=== PATIENT | male | born 1985 | race Two or more races ===

== ENCOUNTER 2021-07-04 09:35 | Emergency (ER) | payer OTHER, SELFPAY ==
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
[2021-07-04 10:15] VITALS: BP 135/83; PULSE 95; RESP 19; TEMP 36.3; O2SAT 95; BMI 20.8
[2021-07-04] MEDS: Cyclobenzaprine HCl 10 MG TABLET PO (12:18)
[2021-07-04] MEDS: Acetaminophen 325 MG TABLET 975 MG PO (12:18)
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
[2021-07-04 13:12] VITALS: BP 106/77; PULSE 58; RESP 16; O2SAT 99
[2021-07-04 13:46] VITALS: RESP 18
== END 2021-07-04 15:48 | disposition home or self-care (01) ==
PROVIDERS: Emergency Provider Emergency Medicine
DX: S13.4XXA Sprain of ligaments of cervical spine, initial encounter (principal); S29.011A Strain of muscle and tendon of front wall of thorax, initial encounter; M54.2 Cervicalgia; R42 Dizziness and giddiness; M25.511 Pain in right shoulder; G44.309 Post-traumatic headache, unspecified, not intractable; V43.52XA Car driver injured in collision with other type car in traffic accident, initial encounter; Y93.9 Activity, unspecified; Y92.410 Unspecified street and highway as the place of occurrence of the external cause; Y99.9 Unspecified external cause status; Z79.899 Other long term (current) drug therapy
CPT/HCPCS: 70450; 71101; 72125; 73030; 99284

== ENCOUNTER 2021-08-27 01:56 | Emergency (ER) | payer OTHER, SELFPAY ==
--- NOTE | ~2021-08-27 | XR_ITS ---
EXAMINATION: XR CHEST CLINICAL INFORMATION: Shortness of breath COMPARISON: 07/04/2021 TECHNIQUE: Frontal view of the chest was obtained. FINDINGS: Lung volumes are symmetric. No focal consolidation is seen. No evidence of pneumothorax, pleural effusion, or pulmonary edema. The cardiomediastinal contour is unremarkable. No acute osseous findings are seen. XR/XR chest 1V IMPRESSION: No acute cardiopulmonary findings.
[2021-08-27 02:04] VITALS: PULSE 97; RESP 16; TEMP 36.6; O2SAT 100; BMI 20.7
--- NOTE | 2021-08-27 02:09 | ED_ITS ---
HPI - SOB/Dyspnea General Chief Complaint: Asthma Stated Complaint: Trouble breathing, allergic reaction?/asthma Time Seen by Provider: 08/27/21 02:00 Source: patient Mode of arrival: ambulatory History of Present Illness HPI Narrative: 35-year-old male with history of asthma presents with worsening shortness of breath over the past 2-3 days and states that his rescue inhaler is not helping. It has been a significant amount of time since his prior asthma exacerbation and he denies any recent COVID-19 vaccinations. In addition, patient states he has had a sore throat and some nasal congestion but otherwise denies body aches or headache. Related Data Previous Rx's Medication Instructions Recorded acetaminophen 500 mg tablet 1,000 mg PO QID PRN #14 tab 07/04/21 (Tylenol Extra Strength) cyclobenzaprine 10 mg tablet 10 mg PO Q8H #14 tab 07/04/21 prednisone 20 mg tablet 40 mg PO DAILY 4 Days #8 tab 08/27/21 Allergies Allergy/AdvReac Type Severity Reaction Status Date / Time No Known Allergies Allergy Unverified 06/17/20 15:59 Review of Systems Review of Systems: Pertinent positives and negatives as stated in HPI 10 point review of systems otherwise negative. PMFSH Past Medical History Source: nursing notes reviewed Medical History Asthma Social History Social History Use of substances other than those prescribed or required for medical reasons: Yes Substance Use Type: Marijuana Advance Directives: No Advance Directives Information Provided: Yes Physical Exam Vital Signs: Vital Signs: Last Vital Signs Temp 97.9 F 08/27/21 02:04 Pulse 97 08/27/21 02:04 Resp 16 08/27/21 02:54 Pulse Ox 100 08/27/21 02:04 Body Mass Index 20.7 VITAL SIGNS: Reviewed. GENERAL: Well developed, well nourished, in no acute distress. HEAD: Normocephalic/atraumatic EYES: PERRLA, EOMI OROPHARYNX: no oral lesions noted, posterior pharynx clear and non-erythematous without noted tonsillar enlargement/erythema/exudates NECK: Supple, no adenopathy LUNGS: Mild decrease in breath sounds with minimal expiratory wheeze, no noted retractions or significant tachypnea. SpO2<95> CARDIOVASCULAR: Regular rate and rhythm without noted murmurs ABDOMEN: Soft, non-tender, non-distended with bowel sounds. SKIN: Inspection of the skin reveals no rashes NEUROLOGIC: Alert and oriented x 4. Course Course Course Narrative: 35-year-old male with history and clinical presentation suggestive of possible mild asthma exacerbation versus COVID-19 infection. Patient is neither significantly tachypneic but is noted to have a decreased oxygenation to 95% and remote history of asthma exacerbation. MDM - SOB/Dyspnea Lab Data Labs: Lab Results 08/27/21 Range/Units 02:15 Influenza Type A (PCR) NEGATIVE (Negative) Influenza Type B (PCR) NEGATIVE (Negative) RSV RNA Qual (PCR) NEGATIVE (Negative) SARS-CoV-2 RNA (RT-PCR) NEGATIVE (Negative) Discharge Plan Discharge Clinical Impression: Asthma with acute exacerbation Patient Disposition: Home, Self-Care Instructions: Asthma (ED) Additional Instructions: 1. Please complete the short course of steroids that you have been prescribed. 2. Continue to use your albuterol inhaler every 4-6 hours, 2 puffs for the next 1-2 days. 3. Follow-up with your primary care provider in the next 2-3 days for re- evaluation. Return to the ER for acute worsening of symptoms. Prescriptions: New prednisone 20 mg tablet 40 mg PO DAILY 4 Days Qty: 8 RF: 0 No Action cyclobenzaprine 10 mg tablet 10 mg PO Q8H Qty: 14 RF: 0 acetaminophen [Tylenol Extra Strength] 500 mg tablet 1,000 mg PO QID PRN (Reason: fever or pain) Qty: 14 RF: 0 Referrals: Erlinda Copeland MD [Primary Care Provider] - 2 days
[2021-08-27] MEDS: Albuterol Sulfate 90 MCG 8 GM INHALER 4 PUFF INHALE (02:21)
[2021-08-27] MEDS: methylPREDNISolone Sod Succ 125 MG/2 ML VIAL IVPUSH (02:21)
--- NOTE | 2021-08-27 02:32 | PC.NURSE ---
pt a&o, reports some sob, no chest pain. Iv placed and pt medicated per Nov. pt is able to speack in full sentence. no respiratory distress at this time.
[2021-08-27 02:54] VITALS: RESP 16
[2021-08-27 02:58] LABS: Influenza A PCR NEGATIVE (Negative); Influenza B PCR NEGATIVE (Negative); Resp Syncy Virus RNA Qual PCR NEGATIVE (Negative); SARS COV2 PCR INHOUSE NEGATIVE (Negative)
--- NOTE | 2021-08-27 03:43 | PC.NURSE ---
pt reports some improvement at this time. Respiratory aware and plan to do a breathing treatment. pt on bedside monitor.
[2021-08-27] MEDS: Albuterol Sulfate (0.083%) 2.5 MG/3 ML VIAL.NEB 5 MG INHALE (04:07)
[2021-08-27 04:08] VITALS: PULSE 82; O2SAT 98
--- NOTE | 2021-08-27 04:12 | PC.NURSE ---
pt having a respiratory treatments. pt is tolerating it well.
[2021-08-27 04:30] VITALS: BP 127/73; PULSE 86; RESP 14; TEMP 36.6; O2SAT 96
== END 2021-08-27 04:37 | disposition home or self-care (01) ==
PROVIDERS: Emergency Provider Student in an Organized Health Care Education/Training Program; PCP Internal Medicine
DX: J45.901 Unspecified asthma with (acute) exacerbation (principal); Z20.822 Contact with and (suspected) exposure to COVID-19; J02.9 Acute pharyngitis, unspecified; Z79.899 Other long term (current) drug therapy; F12.90 Cannabis use, unspecified, uncomplicated
CPT/HCPCS: 0241U; 36415; 71045; 94640; 96374; 99284; J2930

== ENCOUNTER 2021-09-16 14:04 | Outpatient (REF) | payer OTHER, SELFPAY ==
[2021-09-16 15:22] LABS: COVID-19 Test Negative (Negative)
== END 2021-09-16 14:05 | disposition home or self-care (01) ==
LOC: HO.LAB 14:04
PROVIDERS: Visit Provider Internal Medicine
DX: Z20.822 Contact with and (suspected) exposure to COVID-19 (principal)
CPT/HCPCS: 36415; 87635; C9803

== ENCOUNTER 2022-07-22 11:39 | Emergency (ER) | payer SELFPAY ==
--- NOTE | ~2022-07-22 | XR_ITS ---
EXAMINATION: XR CHEST CLINICAL INFORMATION: Shortness of breath. COMPARISON: 08/27/2021 chest radiograph. TECHNIQUE: Frontal view of the chest was obtained. FINDINGS: No significant abnormality is noted involving the heart, lungs, mediastinum, bony thorax or soft tissues. XR/XR chest 1V IMPRESSION: No acute cardiopulmonary process.
--- NOTE | 2022-07-22 11:42 | ECG_ITS ---
Test Reason : SOB Blood Pressure : / mmHG Vent. Rate : 131 BPM Atrial Rate : 131 BPM P-R Int : 126 ms QRS Dur : 082 ms QT Int : 298 ms P-R-T Axes : 067 088 021 degrees QTc Int : 440 ms Sinus tachycardia Nonspecific T wave abnormality Abnormal ECG No previous ECGs available Referred By: Deedee Guajardo Electronically Signed By:NOLAN ARTHUR MD
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
[2022-07-22] MEDS: Albuterol Sulfate 7.5 MG, Albuterol/Iprat 2.5/0.5MG 3 ML 3 ML INHALE (11:52)
[2022-07-22 11:53] VITALS: BP 112/83; PULSE 133; RESP 18; TEMP 36.8; O2SAT 79; BMI 18.8
[2022-07-22] MEDS: methylPREDNISolone Sod Succ 125 MG/2 ML VIAL IVPUSH (11:57)
[2022-07-22] MEDS: Magnesium Sulfate/H2O 2 GM/50 ML PIGGYBACK IV (11:57)
--- NOTE | 2022-07-22 11:58 | ED_ITS ---
HPI - Asthma General Chief Complaint: Dyspnea Stated Complaint: asthma, diff breathing Time Seen by Provider: 07/22/22 11:43 Source: patient Mode of arrival: ambulatory Limitations: no limitations History of Present Illness HPI Narrative: 36 yo male hx of asthma - no recent admissions no prior intubations, no recent steroids, does smoke THC has felt his asthma going for a few days today 10 minutes prior to arrival became acutely worse and his INH stopped working. He is unsure what triggered this attack no recent URI complaint: asthma attack , shortness of breath and wheezing Onset (ago): day(s) (few) Severity: severe Context: none known Associated symptoms: dry cough Asthma History: childhood onset Treatments Prior to Arrival: inhaled bronchodilator Related Data Previous Rx's Medication Instructions Recorded acetaminophen 500 mg tablet 1,000 mg PO QID PRN fever or pain 07/04/21 (Tylenol Extra Strength) #14 tabs cyclobenzaprine 10 mg tablet 10 mg PO Q8H Muscle spasm #14 tabs 07/04/21 prednisone 20 mg tablet 40 mg PO DAILY 4 days #8 tabs 08/27/21 albuterol sulfate 90 mcg/actuation 2 puff inhalation QID PRN 07/22/22 aerosol inhaler shortness of breath or wheezing #6.7 grams montelukast 10 mg tablet 10 mg PO DAILY #30 tabs 07/22/22 (Singulair) prednisone 20 mg tablet 40 mg PO DAILY 5 days #10 tabs 07/22/22 Allergies Allergy/AdvReac Type Severity Reaction Status Date / Time No Known Allergies Allergy Unverified 06/17/20 15:59 Review of Systems Review of Systems: Constitutional : No Fever, No Chills ENT/Mouth : No Hoarseness, No sore throat, No Rhinorrhea Eyes: No Redness, No Discharge, No Vision Changes Cardiovascular : No Chest Pain, positive SOB, positive Dyspnea on Exertion, No Edema Respiratory : positive Cough, No Sputum, positive Wheezing, Gastrointestinal : No Nausea, No Vomiting, No Diarrhea, No abdominal Pain Genitourinary : No Dysuria, No Hematuria Musculoskeletal : No joint pain, No Myalgias Skin : No rash Neuro : No Weakness, No Numbness, No Headache Psych : No anxiety, depression Heme/Lymph: No Bruising, No Bleeding Endocrine : No Polyuria, No Polydipsia All other systems reviewed and are negative PMFSH Past Medical History Medical History Asthma Social History Social History Substance Use Type: Marijuana Advance Directives: No Advance Directives Information Provided: Yes Physical Exam Vital Signs: Vital Signs: Last Vital Signs Temp 98.3 F 07/22/22 11:53 Pulse 116 H 07/22/22 13:43 Resp 18 07/22/22 11:53 BP 121/71 07/22/22 13:43 Pulse Ox 100 07/22/22 13:43 O2 Del Method 07/22/22 13:43 BMI result Body Mass Index 18.8 Appearance: Alert. Oriented X3. Moderate acute distress. Eyes: Pupils equal, round and reactive to light. ENT: Pharynx normal. Neck: Normal inspection. Neck supple. CVS: Normal heart rate and rhythm. Pulses normal. Respiratory: Moderate respiratory distress - tachypnea, retractions. Breath sounds very diminished - diffuse scant wheezes heard insp/exp Abdomen: Soft and nontender. Skin: Skin warm and dry. Normal skin color. Normal skin turgor. Extremities: No lower extremity edema. No calf ttp Neuro: Oriented X 3. No motor deficit. No sensory deficit. Course Course Course Narrative: drastic improvement with neb, repeat 5mg ordered clear lungs 100% on RA, feels much better wants to go home - HR elevated from nebs MDM - Asthma MDM Narrative Medical decision making narrative: 36 yo male with hx of asthma here with acute exacerbation of asthma in moderate distress - hour long neb ordered, IV steroids, IV magnesium - denies recent infection. Dispo per results and clinical improvement. Lab Data Result diagrams: 07/22/22 11:56 07/22/22 11:56 Labs: Lab Results 07/22/22 07/22/22 07/22/22 Range/Units 11:56 11:56 11:56 WBC 10.5 (4.8-10.8) X10*3/uL RBC 5.25 (4.60-5.80) X10*6/uL Hgb 14.6 (14.0-18.0) g/dl Hct 44.3 (42.0-52.0) % MCV 84.4 (80.0-98.0) fL MCH 27.8 (27.0-33.0) pg MCHC 33.0 (31.0-36.0) g/dl RDW 12.6 (11.0-16.0) % Plt Count 397 (160-400) X10*3/uL MPV 9.0 L (9.4-12.4) fL Immature Gran % (Auto) 0.1 (0.0-0.4) % Neut % (Auto) 43.3 L (45-73) % Lymph % (Auto) 39.9 (20-40) % [place] % (Auto) 5.7 (2-11) % Eos % (Auto) 9.9 H (0-4) % Baso % (Auto) 1.1 (0-2) % Lymph # (Auto) 4.2 (1.2-4.9) X10*3/uL [place] # (Auto) 0.6 (0.1-1.2) X10*3/uL Eos # (Auto) 1.0 H (0.0-0.4) X10*3/uL Baso # (Auto) 0.1 (0.0-0.2) X10*3/uL Abs Immat Gran (auto) 0.01 (0.00-0.03) X10*3/uL Absolute Neuts (auto) 4.5 (2.0-8.3) x10*3/uL Absolute Nucleated RBC 0.000 (0.0-0.012) X10*3/uL Nucleated RBC % (auto) 0.0 (0.0-0.2) /100WBC Sodium 143 (135-145) mmol/L Potassium 3.5 (3.3-5.1) mmol/L Chloride 105 (96-108) mmol/L Carbon Dioxide 23 (22-29) mmol/L Anion Gap 19 (12-20) BUN 12 (9-16) mg/dL Creatinine 1.03 (0.5-1.4) mg/dL Estim Creat Clear Calc 77.8 Estimated GFR > 60 Random Glucose 124 H (60-115) mg/dL Calcium 9.4 (8.4-10.2) mg/dL Magnesium 1.8 (1.6-2.6) mg/dL Total Bilirubin 1.1 H (0.0-1.0) mg/dL Direct Bilirubin 0.4 (0.0-0.5) mg/dL AST 20 (5-37) U/L ALT 10 (0-40) U/L Alkaline Phosphatase 91 (39-117) U/L Total Protein 7.2 (6.5-8.0) g/dL Albumin 4.3 (3.5-5.0) g/dL COVID-19 ([place]) Negative (Negative) COVID-19 Clin Com See Note ECG Data Attestation: I personally reviewed and interpreted this ECG as follows: ECG interpretation date: 07/22/22 ECG interpretation time: 13:10 Interpretation: Rate: 131 Rhythm: sinus tachycardia [place]: normal Normal P waves. Normal [place]. Normal QRS complex. ST T wave : nonspecific no BUCK qTC: normal prior studies: no acute ischemia The study has been interpreted contemporaneously by me. . Critical Care Time Critical Care Time Critical Care Time: Yes Total Critical Care Time: 40 Attestation: hour long neb, repeat neb, emergent bedside attendance for hypoxia I attest to this time spent taking care of the patient Discharge Plan Discharge Clinical Impression: Asthma with exacerbation Qualifiers: Asthma severity: mild Asthma persistence: persistent Qualified Code(s): J45.31 - Mild persistent asthma with (acute) exacerbation Patient Disposition: Home, Self-Care Instructions: Asthma (ED) Additional Instructions: return to ED for any worsening symptoms or concerns please avoid smoke exposure follow up with primary care doctor gorge is for allergies Prescriptions: New prednisone 20 mg tablet 40 mg PO DAILY 5 Days Qty: 10 0RF albuterol sulfate 90 mcg/actuation HFA aerosol inhaler 2 puff inhalation QID PRN (Reason: shortness of breath or wheezing) Qty: 6.7 1RF montelukast [Singulair] 10 mg tablet 10 mg PO DAILY Qty: 30 0RF No Action prednisone 20 mg tablet 40 mg PO DAILY 4 Days Qty: 8 0RF cyclobenzaprine 10 mg tablet 10 mg PO Q8H Qty: 14 0RF acetaminophen [Tylenol Extra Strength] 500 mg tablet 1,000 mg PO QID PRN (Reason: fever or pain) Qty: 14 0RF Stand Alone Forms: Work/School Release
[2022-07-22 12:02] LABS: MANUAL DIFF FLAG NO
[2022-07-22 12:04] LABS: Basophils Absolute Auto 0.1 X10*3/uL (0.0-0.2); Basophils Percent Auto 1.1 % (0-2); Eosinophils Percent Auto 9.9 % (0-4); Hematocrit 44.3 % (42.0-52.0); Hemoglobin 14.6 g/dl (14.0-18.0); Imm Gran Abs Auto 0.01 X10*3/uL (0.00-0.03); Imm Gran Pct Auto 0.1 % (0.0-0.4); Lymphocytes Absolute Auto 4.2 X10*3/uL (1.2-4.9); Lymphocytes Percent Auto 39.9 % (20-40); Mean Corpuscular Hemoglobin 27.8 pg (27.0-33.0); Mean Corpuscular Volume 84.4 fL (80.0-98.0); Monocytes Absolute Auto 0.6 X10*3/uL (0.1-1.2); Monocytes Percent Auto 5.7 % (2-11); Neutrophils Absolute Auto 4.5 x10*3/uL (2.0-8.3); Neutrophils Percent Auto 43.3 % (45-73); Platelet Count 397 X10*3/uL (160-400); Red Blood Count 5.25 X10*6/uL (4.60-5.80); Red Cell Distribution Width 12.6 % (11.0-16.0); White Blood Count 10.5 X10*3/uL (4.8-10.8)
[2022-07-22 12:24] LABS: COVID-19 Test Negative (Negative); IDNOW Serial# 9DB6401D
[2022-07-22 12:29] LABS: Alanine Aminotransferase 10 U/L (0-40); Albumin Level 4.3 g/dL (3.5-5.0); Alkaline Phosphatase 91 U/L (39-117); Anion Gap 19 (12-20); Aspartate Amino Transferase 20 U/L (5-37); Bilirubin Direct 0.4 mg/dL (0.0-0.5); Bilirubin Total 1.1 mg/dL (0.0-1.0); Blood Urea Nitrogen 12 mg/dL (9-16); Calcium 9.4 mg/dL (8.4-10.2); Carbon Dioxide 23 mmol/L (22-29); Chloride 105 mmol/L (96-108); Creatinine Clr Calc Pharmacy 77.8; Estimated Glomerular Filt Rate > 60; Glucose Random 124 mg/dL (60-115); Magnesium 1.8 mg/dL (1.6-2.6); Potassium 3.5 mmol/L (3.3-5.1); Sodium 143 mmol/L (135-145); Total Protein 7.2 g/dL (6.5-8.0)
[2022-07-22] MEDS: Albuterol Sulfate 2.5 MG, Albuterol Sulfate (0.083%) 2.5 MG 5 MG INHALE (12:38)
[2022-07-22 13:43] VITALS: BP 121/71; PULSE 116; O2SAT 100
== END 2022-07-22 14:25 | disposition home or self-care (01) ==
PROVIDERS: Emergency Provider Emergency Medicine
DX: J45.31 Mild persistent asthma with (acute) exacerbation (principal); F12.90 Cannabis use, unspecified, uncomplicated; Z20.822 Contact with and (suspected) exposure to COVID-19
CPT/HCPCS: 71045; 80048; 80076; 83735; 85025; 87635; 93005; 96365; 96375; 99284; J2930; J3475

== ENCOUNTER 2024-02-29 23:47 | Emergency (ER) | payer BC, SELFPAY ==
--- NOTE | ~2024-02-29 | XR_ITS ---
EXAMINATION: XR CHEST CLINICAL INFORMATION: Asthma. COMPARISON: Chest radiograph dated 07/22/2022. TECHNIQUE: Frontal view of the chest was obtained. FINDINGS: Heart size is normal. There is no consolidation. No pleural effusion or pneumothorax. No acute osseous abnormality. XR/XR chest 1V IMPRESSION: No acute cardiopulmonary disease.
[2024-02-29 23:56] VITALS: BP 130/84; PULSE 92; RESP 20; TEMP 36.7; O2SAT 93; BMI 23.1
[2024-03-01 00:05] VITALS: PULSE 82; RESP 18; O2SAT 95
[2024-03-01 00:14] LABS: MANUAL DIFF FLAG NO
[2024-03-01 00:17] LABS: Basophils Absolute Auto 0.1 X10*3/uL (0.0-0.2); Basophils Percent Auto 1.1 % (0-2); Eosinophils Percent Auto 9.6 % (0-4); Hematocrit 40.6 % (42.0-52.0); Hemoglobin 13.8 g/dl (14.0-18.0); Imm Gran Abs Auto 0.02 X10*3/uL (0.00-0.03); Imm Gran Pct Auto 0.2 % (0.0-0.4); Lymphocytes Absolute Auto 4.1 X10*3/uL (1.2-4.9); Lymphocytes Percent Auto 38.9 % (20-40); Mean Corpuscular Hemoglobin 28.8 pg (27.0-33.0); Mean Corpuscular Volume 84.8 fL (80.0-98.0); Mean Platelet Volume 9.1 fL (9.4-12.4); Monocytes Absolute Auto 0.7 X10*3/uL (0.1-1.2); Monocytes Percent Auto 6.3 % (2-11); Neutrophils Absolute Auto 4.6 x10*3/uL (2.0-8.3); Neutrophils Percent Auto 43.9 % (45-73); Platelet Count 313 X10*3/uL (160-400); Red Blood Count 4.79 X10*6/uL (4.60-5.80); Red Cell Distribution Width 13.2 % (11.0-16.0); White Blood Count 10.4 X10*3/uL (4.8-10.8)
[2024-03-01 00:28] LABS: Alanine Aminotransferase 43 U/L (0-40); Alkaline Phosphatase 92 U/L (39-117); Anion Gap 13 (12-20); Aspartate Amino Transferase 37 U/L (5-37); Bilirubin Total 0.5 mg/dL (0.0-1.0); Blood Urea Nitrogen 14 mg/dL (9-16); Calcium 9.5 mg/dL (8.4-10.2); Carbon Dioxide 24 mmol/L (22-29); Chloride 107 mmol/L (96-108); Creatinine Clr Calc Pharmacy 87.5; Estimated Glomerular Filt Rate > 60; Glucose Random 103 mg/dL (60-115); Potassium 3.5 mmol/L (3.3-5.1); Sodium 140 mmol/L (135-145); Total Protein 7.1 g/dL (6.5-8.0)
--- NOTE | 2024-03-01 00:45 | ED.SOB ---
HPI - SOB/Dyspnea General Chief Complaint: Dyspnea Stated Complaint: sob/asthma Time Seen by Provider: 03/01/24 00:31 History of Present Illness HPI Narrative: Patient is a 38-year-old male presented today with a history of asthma. Positive coughing positive upper respiratory symptoms. Positive generalized malaise. Positive history of smoking marijuana. Two ED visits in the past. Never been hospitalized. Related Data Previous Rx's ?Medication ?Instructions ?Recorded acetaminophen 500 mg tablet 1,000 mg (2 x 500 mg) PO QID PRN 07/04/21 (Tylenol Extra Strength) fever or pain #14 tabs cyclobenzaprine 10 mg tablet 10 mg PO Q8H Muscle spasm #14 tabs 07/04/21 prednisone 20 mg tablet 40 mg (2 x 20 mg) PO DAILY 4 days 08/27/21 #8 tabs albuterol sulfate 90 mcg/actuation 2 puff inhalation QID PRN 07/22/22 aerosol inhaler shortness of breath or wheezing #6.7 grams montelukast 10 mg tablet 10 mg PO DAILY #30 tabs 07/22/22 (Singulair) prednisone 20 mg tablet 40 mg (2 x 20 mg) PO DAILY 5 days 07/22/22 #10 tabs prednisone 20 mg tablet 40 mg (2 x 20 mg) PO DAILY #10 tabs 03/01/24 Allergies Allergy/AdvReac Type Severity Reaction Status Date / Time No Known Allergies Allergy Verified 02/29/24 23:57 Review of Systems Review of Systems: Positive coughing congestion positive wheezing PMFSH Past Medical History Attestation statement: The following information was validated with the patient. Medical History Asthma Social History Social History Smoked in Last 30 Days: No Substance Use Type: Marijuana Advance Directives: No Advance Directives Information Provided: Yes Do you have a plan to hurt others: No Plan Physical Exam Vital Signs: Vital Signs: Last Vital Signs Temp 98.0 F 02/29/24 23:56 Pulse 97 03/01/24 01:18 Resp 16 03/01/24 01:18 BP 130/84 02/29/24 23:56 Pulse Ox 95 03/01/24 00:05 O2 Del Method Room Air 03/01/24 00:05 BMI result Body Mass Index 23.1 Appearance: Alert. Oriented X3. No acute distress. Eyes: Pupils equal, round and reactive to light. ENT: Pharynx normal. Neck: Normal inspection. Neck supple. No lymph nodes noted. No crepitus CVS: Normal heart rate and rhythm. Pulses normal. Normal S1 and S2 Respiratory: No respiratory distress. Minimal wheezing noted bilaterally Abdomen: Soft and nontender. No rigidity. No distention. good BS x4 Skin: Skin warm and dry. Normal skin color. Normal skin turgor. Extremities: No lower extremity edema. Neurovascular intact to all extremities. No Lacerations. No Rash Neuro: Oriented X 3. No motor deficit. No sensory deficit. Moving all extermities. No slurred speech Medications Administered Discontinued Medications Generic Name Dose Route Start Last Admin Trade Name Freq PRN Reason Stop Dose Admin Albuterol/Ipratropium 3 ml 03/01/24 00:42 03/01/24 01:15 Albuterol/Iprat 2.5/0.5mg 3 Ml Ampul.Neb INHALE 03/01/24 00:43 3 ml ONCE ONE Administration Methylprednisolone Sodium Succinate 125 mg 03/01/24 00:42 03/01/24 00:51 Methylprednisolone Sod Succ 125 Mg/2 Ml Vial IVPUSH 03/01/24 00:43 125 mg ONCE ONE Administration Medical Decision Making Medical Decision Making [facility] [place] Narrative: Patient given neb treatment and also steroids. Symptom improved. Lungs are only minimal wheezing. Will discharge patient home O2 sat is normal moving good air. Will have patient follow-up on an outpatient basis with his primary. Started on a course of steroids. Patient's flu RSV COVID were all negative. My interpretation patient's chest x-ray was grossly negative for pneumonia. I reviewed radiology's reading. In stable condition Differential Diagnosis Differential Diagnoses: The differential diagnosis associated with the presentation includes Asthma exacerbation Admission/Observation Consideration of admission/observation: Escalation of care including admission/observation considered Symptom improved no need for admission Lab Data [facility] [place] Lab Attestation statement: I reviewed the patient's lab results. 03/01/24 00:09 03/01/24 00:09 Labs: Lab Results 03/01/24 03/01/24 Range/Units 00:09 01:00 WBC 10.4 (4.8-10.8) X10*3/uL RBC 4.79 (4.60-5.80) X10*6/uL Hgb 13.8 L (14.0-18.0) g/dl Hct 40.6 L (42.0-52.0) % MCV 84.8 (80.0-98.0) fL MCH 28.8 (27.0-33.0) pg MCHC 34.0 (31.0-36.0) g/dl RDW 13.2 (11.0-16.0) % Plt Count 313 (160-400) X10*3/uL MPV 9.1 L (9.4-12.4) fL Immature Gran % (Auto) 0.2 (0.0-0.4) % Neut % (Auto) 43.9 L (45-73) % Lymph % (Auto) 38.9 (20-40) % [place] % (Auto) 6.3 (2-11) % Eos % (Auto) 9.6 H (0-4) % Baso % (Auto) 1.1 (0-2) % Lymph # (Auto) 4.1 (1.2-4.9) X10*3/uL [place] # (Auto) 0.7 (0.1-1.2) X10*3/uL Eos # (Auto) 1.0 H (0.0-0.4) X10*3/uL Baso # (Auto) 0.1 (0.0-0.2) X10*3/uL Abs Immat Gran (auto) 0.02 (0.00-0.03) X10*3/uL Absolute Neuts (auto) 4.6 (2.0-8.3) x10*3/uL Absolute Nucleated RBC 0.000 (0.0-0.012) X10*3/uL Nucleated RBC % (auto) 0.0 (0.0-0.2) /100WBC Sodium 140 (135-145) mmol/L Potassium 3.5 (3.3-5.1) mmol/L Chloride 107 (96-108) mmol/L Carbon Dioxide 24 (22-29) mmol/L Anion Gap 13 (12-20) BUN 14 (9-16) mg/dL Creatinine 1.09 (0.5-1.4) mg/dL Estim Creat Clear Calc 87.5 Estimated GFR > 60 Random Glucose 103 (60-115) mg/dL Calcium 9.5 (8.4-10.2) mg/dL Total Bilirubin 0.5 (0.0-1.0) mg/dL AST 37 (5-37) U/L ALT 43 H (0-40) U/L Alkaline Phosphatase 92 (39-117) U/L Total Protein 7.1 (6.5-8.0) g/dL Albumin 4.0 (3.5-5.0) g/dL Influenza Type A (PCR) NEGATIVE (Negative) Influenza Type B (PCR) NEGATIVE (Negative) RSV RNA Qual (PCR) NEGATIVE (Negative) SARS-CoV-2 RNA (RT-PCR) NEGATIVE (Negative) Independent Interpretation I performed an independent interpretation of an: Plain X-Ray (Chest x-ray is grossly negative) Radiology Impression Discussion of test interpretation with radiology: I have reviewed the radiologist's reading. Independent Historian Clinical information obtained from an independent historian. History obtained from or confirmed by: Spouse Discharge Plan Discharge Clinical Impression: Asthma with exacerbation Patient Disposition: Home, Self-Care Instructions: Asthma (DC) Prescriptions: New prednisone 20 mg tablet 40 mg PO DAILY Qty: 10 0RF No Action prednisone 20 mg tablet 40 mg PO DAILY 4 Days Qty: 8 0RF cyclobenzaprine 10 mg tablet 10 mg PO Q8H Qty: 14 0RF acetaminophen [Tylenol Extra Strength] 500 mg tablet 1,000 mg PO QID PRN (Reason: fever or pain) Qty: 14 0RF prednisone 20 mg tablet 40 mg PO DAILY 5 Days Qty: 10 0RF albuterol sulfate 90 mcg/actuation HFA aerosol inhaler 2 puff inhalation QID PRN (Reason: shortness of breath or wheezing) Qty: 6.7 1RF montelukast [Singulair] 10 mg tablet 10 mg PO DAILY Qty: 30 0RF Referrals: Physician,Unknown J [Primary Care Provider] - 03/03/24 Print Language: Divehi
[2024-03-01] MEDS: methylPREDNISolone Sod Succ 125 MG/2 ML VIAL IVPUSH (00:51)
[2024-03-01] MEDS: Albuterol/Iprat 2.5/0.5MG 3 ML AMPUL.NEB INHALE (01:15)
[2024-03-01 01:18] VITALS: PULSE 97; RESP 16; O2SAT 98
[2024-03-01 01:41] LABS: Influenza A PCR NEGATIVE (Negative); Influenza B PCR NEGATIVE (Negative); Resp Syncy Virus RNA Qual PCR NEGATIVE (Negative); SARS COV2 PCR INHOUSE NEGATIVE (Negative)
[2024-03-01 01:53] VITALS: BP 130/84; PULSE 97; RESP 16; TEMP 36.7; O2SAT 95
== END 2024-03-01 01:53 | disposition home or self-care (01) ==
PROVIDERS: Emergency Provider Emergency Medicine Emergency Medical Services
DX: J45.901 Unspecified asthma with (acute) exacerbation (principal); Z03.818 Encounter for observation for suspected exposure to other biological agents ruled out; F12.90 Cannabis use, unspecified, uncomplicated
CPT/HCPCS: 0241U; 36415; 71045; 80053; 85025; 94640; 96374; 99284; J2919

== ENCOUNTER 2024-03-17 04:43 | Emergency (ER) | payer BC, SELFPAY ==
[2024-03-17 04:49] VITALS: BP 131/81; PULSE 90; RESP 16; TEMP 36.6; O2SAT 95; BMI 22.0
--- NOTE | 2024-03-17 05:08 | ED_ITS ---
HPI - SOB/Dyspnea General Chief Complaint: Dyspnea Stated Complaint: trouble breathing Time Seen by Provider: 03/17/24 05:08 Source: patient Mode of arrival: ambulatory Limitations: no limitations History of Present Illness ED Provider: jyoti LEE Narrative: Patient's history of asthma does have cats at home been having frequent asthma attacks last time he was seen here was 2 weeks ago prescribed prednisone which did not take more than 2 days for last 2 days been having shortness of breath took 40 mg of prednisone prior to arrival Related Data Previous Rx's ?Medication ?Instructions ?Recorded acetaminophen 500 mg tablet 1,000 mg (2 x 500 mg) PO QID PRN 07/04/21 (Tylenol Extra Strength) fever or pain #14 tabs cyclobenzaprine 10 mg tablet 10 mg PO Q8H Muscle spasm #14 tabs 07/04/21 prednisone 20 mg tablet 40 mg (2 x 20 mg) PO DAILY 4 days 08/27/21 #8 tabs albuterol sulfate 90 mcg/actuation 2 puff inhalation QID PRN 07/22/22 aerosol inhaler shortness of breath or wheezing #6.7 grams montelukast 10 mg tablet 10 mg PO DAILY #30 tabs 07/22/22 (Singulair) prednisone 20 mg tablet 40 mg (2 x 20 mg) PO DAILY 5 days 07/22/22 #10 tabs prednisone 20 mg tablet 40 mg (2 x 20 mg) PO DAILY #10 tabs 03/01/24 prednisone 20 mg tablet 40 mg (2 x 20 mg) PO DAILY #10 tabs 03/17/24 Allergies Allergy/AdvReac Type Severity Reaction Status Date / Time cat dander [cats] Allergy Unknown Verified 03/17/24 05:01 Seasonal Allergies Allergy Itchy Eyes Verified 03/17/24 05:01 Review of Systems Review of Systems: Yes all other systems are reviewed and are negative PMFSH Past Medical History Medical History Asthma Social History Social History Smoked in Last 30 Days: No Use of substances other than those prescribed or required for medical reasons: Yes Substance Use Type: Marijuana Advance Directives: No Advance Directives Information Provided: Yes Physical Exam Vital Signs: Vital Signs: Last Vital Signs Temp 97.6 F 03/17/24 06:22 Pulse 103 H 03/17/24 06:22 Resp 18 03/17/24 06:22 BP 118/78 03/17/24 06:22 Pulse Ox 95 03/17/24 06:22 O2 Del Method Room Air 03/17/24 06:22 BMI result Body Mass Index 22.0 Appearance: Alert. Oriented X3. No acute distress. ENT: Pharynx normal. Oral Mucosa moist Neck: Normal inspection. Neck supple. CVS: Normal heart rate and rhythm. Pulses normal. Respiratory: No respiratory distress. Equal air entry bilateral, bilateral wheezing Abdomen: Soft and nontender. Bowel sounds are present, no mass palpable, no CVA tenderness Skin: Skin warm and dry. Normal skin color. Normal skin turgor. Extremities: No lower extremity edema. No calf tenderness Neuro: Oriented X 3. Medications Administered Discontinued Medications Generic Name Dose Route Start Last Admin Trade Name Freq PRN Reason Stop Dose Admin Albuterol Sulfate 5 mg/ 7.5 mg 03/17/24 05:30 03/17/24 05:33 Albuterol Sulfate 2.5 mg INHALE 03/17/24 05:31 7.5 mg ONCE ONE Administration Medical Decision Making Medical Decision Making MDM Narrative: Patient with asthma comes here for acute exacerbation took prednisone at home improved after nebulizing treatment history of same in the past discharge patient home advised to continue nebulizer treatment and prednisone Discharge Plan Discharge Clinical Impression: Asthma with exacerbation Patient Disposition: Home, Self-Care Instructions: Asthma (ED) Additional Instructions: Continue to use inhaler/nebulizing treatment every 4 hours as needed Prednisone as prescribed Continue Singulair Follow up your PCP if not better Prescriptions: New prednisone 20 mg tablet 40 mg PO DAILY Qty: 10 0RF No Action prednisone 20 mg tablet 40 mg PO DAILY 4 Days Qty: 8 0RF cyclobenzaprine 10 mg tablet 10 mg PO Q8H Qty: 14 0RF acetaminophen [Tylenol Extra Strength] 500 mg tablet 1,000 mg PO QID PRN (Reason: fever or pain) Qty: 14 0RF prednisone 20 mg tablet 40 mg PO DAILY 5 Days Qty: 10 0RF albuterol sulfate 90 mcg/actuation HFA aerosol inhaler 2 puff inhalation QID PRN (Reason: shortness of breath or wheezing) Qty: 6.7 1RF montelukast [Singulair] 10 mg tablet 10 mg PO DAILY Qty: 30 0RF prednisone 20 mg tablet 40 mg PO DAILY Qty: 10 0RF Interventions: ED Discharge Assessment Last Done: 03/17/24 06:22 Discharge Date/Time: 03/17/24 06:22 Print Language: [place]
[2024-03-17] MEDS: Albuterol Sulfate 5 MG, Albuterol Sulfate (0.083%) 2.5 MG 7.5 MG INHALE (05:33)
[2024-03-17 06:14] VITALS: BP 118/78; PULSE 103; RESP 18; TEMP 36.4; O2SAT 95
[2024-03-17 06:22] VITALS: BP 118/78; PULSE 103; RESP 18; TEMP 36.4; O2SAT 95
== END 2024-03-17 06:22 | disposition home or self-care (01) ==
PROVIDERS: Emergency Provider Internal Medicine
DX: J45.901 Unspecified asthma with (acute) exacerbation (principal); R06.02 Shortness of breath; Z79.899 Other long term (current) drug therapy
CPT/HCPCS: 99284

== ENCOUNTER 2024-09-28 11:21 | Inpatient (IN) | payer BC, SELFPAY ==
[2024-09-28] VITALS (7 sets, daily range): BP systolic 111–129; BP diastolic 59–77; PULSE 60–119; RESP 15–20; TEMP 36.3–37.6; O2SAT 92–95; BMI 23.0
--- NOTE | ~2024-09-28 | XR_ITS ---
CLINICAL HISTORY: shortness of breath Chest radiographs, 2 views Comparison: CR/SR - XR CHEST 1V - 03/01/24 00:17 EDT Findings: The cardiomediastinal silhouette is not enlarged. Pulmonary vascularity is unremarkable. No focal consolidation or effusion. No pneumothorax. IMPRESSION: No acute cardiopulmonary findings. This document has been electronically signed by: Mohsen Tran DO on 09/28/2024 12:38:11
--- NOTE | 2024-09-28 11:30 | ED_ITS ---
HPI - General Adult General Chief complaint: General Medical Stated complaint: SOB, body aches Time Seen by Provider: 09/28/24 13:01 Source: patient Mode of arrival: ambulatory Limitations: no limitations History of Present Illness ED Provider: DR. Sharpe HPI narrative: 39-year-old male with history of bronchial asthma came in today for evaluation of flu-like symptoms. Patient's symptoms started 2-3 days ago with nausea, vomiting, nonbloody watery diarrhea, shortness of breath and wheezing, 2 family members are sick with similar symptoms. Related Data Previous Rx's ?Medication ?Instructions ?Recorded acetaminophen 500 mg tablet 1,000 mg (2 x 500 mg) PO QID PRN 07/04/21 (Tylenol Extra Strength) fever or pain #14 tabs cyclobenzaprine 10 mg tablet 10 mg PO Q8H Muscle spasm #14 tabs 07/04/21 prednisone 20 mg tablet 40 mg (2 x 20 mg) PO DAILY 4 days 08/27/21 #8 tabs albuterol sulfate 90 mcg/actuation 2 puff inhalation QID PRN 07/22/22 aerosol inhaler shortness of breath or wheezing #6.7 grams montelukast 10 mg tablet 10 mg PO DAILY #30 tabs 07/22/22 (Singulair) prednisone 20 mg tablet 40 mg (2 x 20 mg) PO DAILY 5 days 07/22/22 #10 tabs prednisone 20 mg tablet 40 mg (2 x 20 mg) PO DAILY #10 tabs 03/01/24 prednisone 20 mg tablet 40 mg (2 x 20 mg) PO DAILY #10 tabs 03/17/24 Allergies Allergy/AdvReac Type Severity Reaction Status Date / Time cat dander [cats] Allergy Unknown Verified 09/28/24 11:32 Seasonal Allergies Allergy Itchy Eyes Verified 09/28/24 11:32 Review of Systems 2 Review of Systems: All other systems are reviewed and are negative Constitutional: Reports as per HPI and Reports no additional constitutional complaints Eyes: Reports as per HPI and Reports no additional eye complaints Reports system reviewed and no additional complaints, except as documented Cardiovascular: Reports as per HPI and Reports no additional cardiovascular complaints Respiratory: Reports as per HPI and Reports no additional respiratory complaints Gastrointestinal: Reports as per HPI and Reports no additional gastrointestinal complaints Genitourinary: Reports no additional female genitourinary complaints Musculoskeletal: Reports no additional musculoskeletal complaints Skin/Breast: Reports system reviewed and no additional complaints, except as docu Psychiatric: Reports no additional psychiatric complaints Endocrine: Reports no additional endocrine complaints Hematologic/Lymphatic: Reports no additional hematologic/lymphatic complaints Allergic/Immunologic: Reports no additional allergic/immunologic complaints Reports system reviewed and no additional complaints, except as documented and Reports Abnormal speech present FOR[facility]LY [facility] Past Medical History Medical History Asthma Social History Social History Smoked in Last 30 Days: No Use of substances other than those prescribed or required for medical reasons: Yes Substance Use Type: Marijuana Last Used Substance: Days (ago) Advance Directives: No Advance Directives Information Provided: No Physical Exam ED Vital Signs: Vital Signs - 24 hr 09/28/24 11:31 09/28/24 12:16 09/28/24 12:59 Temperature 99.6 F 97.5 F Pulse Rate 119 H 114 H 114 H Respiratory Rate 20 20 18 Blood Pressure 111/76 128/77 Pulse Oximetry 94 93 Oxygen Delivery Method Room Air Room Air BMI result Body Mass Index 23.0 Vital signs have been reviewed and appear to be correct. Blood pressure elevated. Heart rate normal. Respiratory rate normal. Temperature normal. Oxygen saturation normal. Appearance: Alert. Oriented X3. No acute distress. Head: Normal external exam. Normocephalic. Atraumatic. No Christopher signs noted. No raccoon eyes noted Eyes: PERRLA. EOMI. Conjunctiva and sclera normal. Eyelids normal. ENT: TM's Normal. Pharynx normal. Uvula midline. Moist mucous membranes. No trismus noted. No drooling noted. No muffled voice noted. Neck: Normal inspection. Neck supple. FROM. No adenopathy. Thyroid Normal. No meningeal signs. No neck mass noted. CVS: Normal heart rate and rhythm. Heart sound normal. No murmurs noted. Pulses normal throughout. Respiratory: No respiratory distress. Painless inspiration. Diffuse mild expiratory wheezing with prolonged expiration, Chest nontender. No accessory muscle usage noted or decreased air movement noted. Abdomen: Soft and nontender. Bowel sounds normal in all 4 quadrants. No distention noted. No organomegaly noted. No visible injury noted. Back: No CVA tenderness. Full range of motion noted. Skin: Skin warm and dry. Normal skin color. Normal skin turgor. No rashes/lesions/lacerations noted. Extremities: No lower extremity edema. Extremities exhibit normal range of motion. Extremities nontender. Neuro: Oriented X 3. Cranial nerve exam: II-XII are grossly intact No motor deficit. No sensory deficit. Reflexes normal. Course Course Course Narrative: This is a Rapid Medical Examination (RME) performed by Lubna Brooks PA-C in triage. Full HPI, ROS, assessment and treatment plan per primary provider in the Main ED. 39 yo male here for eval of nausea, vomiting, decreased PO intake, chills, shortness of breath x4 days. feels dehydrated. son at home was recently ill with similar symptoms. at home ill as well. + expiratory wheezes Plan: labs, viral swabs, cxr, ed bronch protocol Reevaluation(s) Reevaluation #1: Influenza a positive, asthma exacerbation, nausea and vomiting. Patient received IV fluids/Zofran/and Imodium along with bronchodilator feel better, post exertion O2 sat is with a normal will discharge to follow-up with PCP. Time: 15:00 Medications Administered Discontinued Medications Generic Name Dose Route Start Last Admin Trade Name Freq PRN Reason Stop Dose Admin Albuterol Sulfate 2.5 mg/ 0 mg 09/28/24 12:55 09/28/24 12:59 Albuterol/Ipratropium 3 ml INHALE 09/28/24 12:56 1 dose ONCE ONE Administration Medical Decision Making Differential Diagnosis Differential Diagnoses: The differential diagnosis associated with the presentation includes (Pneumonia, pneumothorax, pleural effusion, influenza a, COVID-19 infection, RSV, electrolyte derangement, dehydration, severe anemia.) Admission/Observation Consideration of admission/observation: Escalation of care including admission/observation considered Lab Data MDM Lab Attestation statement: I reviewed the patient's lab results. 09/28/24 11:39 09/28/24 11:39 Labs: Lab Results 09/28/24 Range/Units 11:39 WBC 13.5 H (4.8-10.8) X10*3/uL RBC 5.94 H D (4.60-5.80) X10*6/uL Hgb 16.7 D (14.0-18.0) g/dl Hct 48.6 (42.0-52.0) % MCV 81.8 (80.0-98.0) fL MCH 28.1 (27.0-33.0) pg MCHC 34.4 (31.0-36.0) g/dl RDW 12.5 (11.0-16.0) % Plt Count 248 (160-400) X10*3/uL MPV 9.4 (9.4-12.4) fL Immature Gran % (Auto) 0.4 (0.0-0.4) % Neut % (Auto) 73.4 H (45-73) % Lymph % (Auto) 16.7 L (20-40) % [place] % (Auto) 9.0 (2-11) % Eos % (Auto) 0.1 (0-4) % Baso % (Auto) 0.4 (0-2) % Lymph # (Auto) 2.3 (1.2-4.9) X10*3/uL [place] # (Auto) 1.2 (0.1-1.2) X10*3/uL Eos # (Auto) 0.0 (0.0-0.4) X10*3/uL Baso # (Auto) 0.1 (0.0-0.2) X10*3/uL Abs Immat Gran (auto) 0.05 H (0.00-0.03) X10*3/uL Absolute Neuts (auto) 9.9 H (2.0-8.3) x10*3/uL Absolute Nucleated RBC 0.000 (0.0-0.012) X10*3/uL Nucleated RBC % (auto) 0.0 (0.0-0.2) /100WBC Sodium 137 (135-145) mmol/L Potassium 4.4 D (3.3-5.1) mmol/L Chloride 101 (96-108) mmol/L Carbon Dioxide 25 (22-29) mmol/L Anion Gap 15 (12-20) BUN 20 H (9-16) mg/dL Creatinine 1.61 H (0.5-1.4) mg/dL Estim Creat Clear Calc 58.7 Estimated GFR 49 Random Glucose 120 H (60-115) mg/dL Calcium 9.2 (8.4-10.2) mg/dL Magnesium 1.5 L (1.6-2.6) mg/dL Total Bilirubin 0.6 (0.0-1.0) mg/dL AST 40 H (5-37) U/L ALT 26 (0-40) U/L Alkaline Phosphatase 82 (39-117) U/L Total Protein 7.9 (6.5-8.0) g/dL Albumin 4.2 (3.5-5.0) g/dL Lipase 18 (8-78) U/L Influenza Type A (PCR) POSITIVE A (Negative) Influenza Type B (PCR) NEGATIVE (Negative) RSV RNA Qual (PCR) NEGATIVE (Negative) SARS-CoV-2 RNA (RT-PCR) NEGATIVE (Negative) Independent Interpretation I performed an independent interpretation of an: Plain X-Ray (Chest: No acute cardiopulmonary findings.) Radiology Impression Discussion of test interpretation with radiology: I have reviewed the radiologist's reading. Discharge Plan Discharge Clinical Impression: Acute asthma exacerbation, Influenza A, ELKE (acute kidney injury) Patient Disposition: Admitted As Inpatient Prescriptions: No Action prednisone 20 mg tablet 40 mg PO DAILY 4 Days Qty: 8 0RF cyclobenzaprine 10 mg tablet 10 mg PO Q8H Qty: 14 0RF acetaminophen [Tylenol Extra Strength] 500 mg tablet 1,000 mg PO QID PRN (Reason: fever or pain) Qty: 14 0RF prednisone 20 mg tablet 40 mg PO DAILY 5 Days Qty: 10 0RF albuterol sulfate 90 mcg/actuation HFA aerosol inhaler 2 puff inhalation QID PRN (Reason: shortness of breath or wheezing) Qty: 6.7 1RF montelukast [Singulair] 10 mg tablet 10 mg PO DAILY Qty: 30 0RF prednisone 20 mg tablet 40 mg PO DAILY Qty: 10 0RF prednisone 20 mg tablet 40 mg PO DAILY Qty: 10 0RF Print Language: Croatian
[2024-09-28 11:44] LABS: MANUAL DIFF FLAG NO
[2024-09-28 11:46] LABS: Basophils Absolute Auto 0.1 X10*3/uL (0.0-0.2); Basophils Percent Auto 0.4 % (0-2); Eosinophils Percent Auto 0.1 % (0-4); Hematocrit 48.6 % (42.0-52.0); Hemoglobin 16.7 g/dl (14.0-18.0); Imm Gran Abs Auto 0.05 X10*3/uL (0.00-0.03); Imm Gran Pct Auto 0.4 % (0.0-0.4); Lymphocytes Absolute Auto 2.3 X10*3/uL (1.2-4.9); Lymphocytes Percent Auto 16.7 % (20-40); Mean Corpuscular HGB Conc 34.4 g/dl (31.0-36.0); Mean Corpuscular Hemoglobin 28.1 pg (27.0-33.0); Mean Corpuscular Volume 81.8 fL (80.0-98.0); Mean Platelet Volume 9.4 fL (9.4-12.4); Monocytes Absolute Auto 1.2 X10*3/uL (0.1-1.2); Neutrophils Absolute Auto 9.9 x10*3/uL (2.0-8.3); Neutrophils Percent Auto 73.4 % (45-73); Platelet Count 248 X10*3/uL (160-400); Red Blood Count 5.94 X10*6/uL (4.60-5.80); Red Cell Distribution Width 12.5 % (11.0-16.0); White Blood Count 13.5 X10*3/uL (4.8-10.8)
[2024-09-28 12:01] LABS: Alanine Aminotransferase 26 U/L (0-40); Albumin Level 4.2 g/dL (3.5-5.0); Alkaline Phosphatase 82 U/L (39-117); Anion Gap 15 (12-20); Aspartate Amino Transferase 40 U/L (5-37); Bilirubin Total 0.6 mg/dL (0.0-1.0); Blood Urea Nitrogen 20 mg/dL (9-16); Calcium 9.2 mg/dL (8.4-10.2); Carbon Dioxide 25 mmol/L (22-29); Chloride 101 mmol/L (96-108); Creatinine Clr Calc Pharmacy 58.7; Estimated Glomerular Filt Rate 49; Glucose Random 120 mg/dL (60-115); Lipase 18 U/L (8-78); Magnesium 1.5 mg/dL (1.6-2.6); Potassium 4.4 mmol/L (3.3-5.1); Sodium 137 mmol/L (135-145); Total Protein 7.9 g/dL (6.5-8.0)
[2024-09-28 12:25] LABS: Influenza A PCR POSITIVE (Negative); Influenza B PCR NEGATIVE (Negative); Resp Syncy Virus RNA Qual PCR NEGATIVE (Negative); SARS COV2 PCR INHOUSE NEGATIVE (Negative)
[2024-09-28] MEDS: Albuterol Sulfate 2.5 MG, Albuterol/Iprat 2.5/0.5MG 3 ML 3 ML INHALE (12:59)
[2024-09-28] MEDS: 0.9 % Sodium Chloride 1,000 ML 999 ML IV (13:17)
[2024-09-28] MEDS: methylPREDNISolone Sod Succ 125 MG/2 ML VIAL IVPUSH (13:20)
[2024-09-28] MEDS: ondansetron HCL 4 MG/2 ML VIAL IVPUSH (13:20)
[2024-09-28] MEDS: Loperamide HCl 2 MG CAPSULE PO (13:21)
--- NOTE | 2024-09-28 14:11 | PM.IMHP ---
History of Present Illness Date of Service: 09/28/24 Attending physician on admission: Shantanu Gutiérrez Chief Complaint: elke ,asthma , influenza A 39 y/o M with mild intermittent asthma-patient came to the hospital because of flu-like symptoms, says that feeling sick since (09/25/24) - symptoms started 2-3 days ago with nausea, vomiting, nonbloody watery diarrhea, shortness of breath and wheezing, 2 family members are sick with similar symptoms .he feels very weak ,unable to take much po from 3-4 days. Patient was given nebs, steroids, fluids-patient is short of breath with minimal exertion. patient wbc : 13.5 ,elke -bun/cr : 20/1.6 , cxr -No acute cardiopulmonary findings. Magnesium 1.5. Admission was requested for asthma exacerbation, influenza a, hypomagnesemia, ELKE Review of Systems Review of Systems: As above. Yes all other systems are reviewed and are negative [facility] Medical History Asthma Social History Household Members: Significant Other and Family Housing: Apartment Do you presently have visiting nurse or other home services: No Patient Tobacco Use Status: Never used Tobacco Smoked in Last 30 Days: No Use of substances other than those prescribed or required for medical reasons: Yes Substance Use Type: Marijuana Substance Use Frequency: Daily Last Used Substance: Days (ago) Last Used Substance Other:: 09/24/2024 Currently Displaying Signs/Symptoms of Drug Intoxication Withdrawal: No Have you been hit, kicked, punched, or otherwise hurt by someone within the past year? If so, by whom?: No Do you feel safe in your current relationship?: Yes Is there a partner from a previous relationship who is making you feel unsafe now?: No Are you made to feel afraid or neglected: No Advance Directives: No Advance Directives Information Provided: No Recently lost weight without trying: No How much weight loss: Not applicable Eating poorly because of decreased appetite: Yes Nutrition screen score: 1 Nutrition Risks: No Nutritional Risk Poor oral hygiene: No Meds Allergies Allergy/AdvReac Type Severity Reaction Status Date / Time cat dander [cats] Allergy Unknown Verified 09/28/24 11:32 Seasonal Allergies Allergy Itchy Eyes Verified 09/28/24 11:32 Home Medications ?Medication ?Instructions ?Recorded ?Confirmed ?Last Taken ?Type fluticasone 500 mcg-salmeterol 50 1 ea inhalation BID 09/28/24 09/28/24 09/27/24 History mcg/dose blistr powdr for inhalation (Alyson Perkinschristian) Physical Exam Vital Signs and Narrative: Vital Signs: Last Vital Signs Temp 97.5 F 09/28/24 12:16 Pulse 114 H 09/28/24 12:59 Resp 18 09/28/24 12:59 BP 128/77 09/28/24 12:16 Pulse Ox 93 09/28/24 12:16 O2 Del Method Room Air 09/28/24 12:16 BMI result Body Mass Index 23.0 Appearance: Alert.? Oriented X3.?? Eyes: Pupils equal, round and reactive to light.? Sclera nonicteric.? ENT: Pharynx normal.?dry mucous membranes. cvs: rrr, [id number] . res: air entry diminshed ,has b/l wheezing abd: no rebound or guarding ,nt, bs present. ext pulses present , no cyanosis . neuro: axo3 , nonfocal. Results Labs 09/28/24 11:39 09/28/24 11:39 Labs: Laboratory Results - last 24 hr 09/28/24 11:39 MCV 81.8 MCH 28.1 MCHC 34.4 RDW 12.5 Plt Count 248 MPV 9.4 Immature Gran % (Auto) 0.4 Neut % (Auto) 73.4 H Lymph % (Auto) 16.7 L [place] % (Auto) 9.0 Eos % (Auto) 0.1 Baso % (Auto) 0.4 Lymph # (Auto) 2.3 [place] # (Auto) 1.2 Eos # (Auto) 0.0 Baso # (Auto) 0.1 Abs Immat Gran (auto) 0.05 H Absolute Neuts (auto) 9.9 H Absolute Nucleated RBC 0.000 Nucleated RBC % (auto) 0.0 Anion Gap 15 Estim Creat Clear Calc 58.7 Estimated GFR 49 Random Glucose 120 H Calcium 9.2 Magnesium 1.5 L Total Bilirubin 0.6 AST 40 H ALT 26 Alkaline Phosphatase 82 Total Protein 7.9 Albumin 4.2 Lipase 18 Influenza Type A (PCR) POSITIVE A Influenza Type B (PCR) NEGATIVE RSV RNA Qual (PCR) NEGATIVE SARS-CoV-2 RNA (RT-PCR) NEGATIVE Assessment and Plan (1) ELKE (acute kidney injury): Status: Acute (2) Influenza A: Status: Acute (3) Acute asthma exacerbation: Qualifiers: Asthma severity: mild Asthma persistence: intermittent Qualified Code(s): J45.21 - Mild intermittent asthma with (acute) exacerbation Status: Acute Plan 39 y/o M with mild intermittent asthma-patient came to the hospital because of flu-like symptoms,ELKE, Influneza A. Mild intermittent asthma excerebation in setting of Influneza A uri : has leucocytosis, no fevers tachycardia/elke sec to dehydration , no sepsis. continue nebs ,steriods ,tamiflu, moniter respiratory status closely. elke: due to dehydration/decreased po intake continue LR@100 ml/hr hypomagnesemia: added iv magnesium dvt prophylax: low risk,ambulate. Patient will benefit from hospitalization considering asthma exacerbation, LEKE, hypomagnesemia in the setting of viral URI: Need IV hydration/nebs steroids and close monitoring of respiratory and renal function. Above management discussed with the patient in detail length he understand and in agreement with the above plan, time spent 70 minute, patient full code. Total time managing care of this patient today: 70 minutes. Quality Stroke Does the patient have a stroke diagnosis?: No VTE Prior VTE?: No VTE Risk Level:: Medical - moderate - high VTE Device Contraindication: N/A - Device Ordered VTE Drug Contraindication: N/A - Med Ordered
[2024-09-28] MEDS: Lactated Ringers 1,000 ML 100 ML IVCONT (14:23)
--- NOTE | 2024-09-28 16:12 | PHA.MEDREC ---
Addendum entered by Meseret William RPh 09/28/24 16:39: reviewed by [facility]. Original Note: Pharmacy Consult ? Medication Reconciliation Pharmacy has completed the medication reconciliation Spoke to pt to confirm meds..
[2024-09-28] MEDS: predniSONE 20 MG TABLET 40 MG PO (17:21)
[2024-09-28] MEDS: Magnesium Sulfate/D5W 1 GM/100 ML PIGGYBACK IV (17:21)
[2024-09-28] MEDS: Oseltamivir Phosphate 75 MG CAPSULE PO (17:21)
[2024-09-28] MEDS: Albuterol/Iprat 2.5/0.5MG 3 ML AMPUL.NEB INHALE (20:00)
[2024-09-29] MEDS: Lactated Ringers 1,000 ML 100 ML IVCONT (01:43)
[2024-09-29] MEDS: 0.9 % Sodium Chloride Flush 3 ML SYRINGE IVFLUSH (01:44)
[2024-09-29 02:53] VITALS: BP 113/67; PULSE 72; RESP 16; TEMP 36.5; O2SAT 93
[2024-09-29 06:55] LABS: Hematocrit 40.1 % (42.0-52.0); Hemoglobin 13.7 g/dl (14.0-18.0); Mean Corpuscular HGB Conc 34.2 g/dl (31.0-36.0); Mean Corpuscular Hemoglobin 28.4 pg (27.0-33.0); Mean Platelet Volume 9.8 fL (9.4-12.4); Platelet Count 217 X10*3/uL (160-400); Red Blood Count 4.83 X10*6/uL (4.60-5.80); Red Cell Distribution Width 12.7 % (11.0-16.0); White Blood Count 10.4 X10*3/uL (4.8-10.8)
[2024-09-29 07:04] VITALS: BP 114/65; PULSE 65; RESP 16; TEMP 36.6; O2SAT 94
[2024-09-29 07:13] LABS: Anion Gap 11 (12-20); Blood Urea Nitrogen 18 mg/dL (9-16); Calcium 8.2 mg/dL (8.4-10.2); Carbon Dioxide 25 mmol/L (22-29); Chloride 106 mmol/L (96-108); Creatinine Clr Calc Pharmacy 87.5; Estimated Glomerular Filt Rate > 60; Glucose Random 150 mg/dL (60-115); Potassium 4.1 mmol/L (3.3-5.1); Sodium 138 mmol/L (135-145)
[2024-09-29 07:35] LABS: Estimated Average Glucose 103 mg/dL; Hemoglobin A1C 118.0806 umol/L; Hemoglobin A1c % 5.2 % (<6.0)
[2024-09-29 07:53] VITALS: PULSE 77; RESP 14; O2SAT 92
[2024-09-29] MEDS: Albuterol/Iprat 2.5/0.5MG 3 ML AMPUL.NEB INHALE (07:53)
[2024-09-29] MEDS: predniSONE 20 MG TABLET 40 MG PO (09:28)
--- NOTE | 2024-09-29 10:14 | MHC.CM.PN ---
pt toan prior to being seen by cm pt toan home self care
--- NOTE | 2024-09-29 10:24 | P.DS_ITS ---
DS: Providers Provider Date of Service: 09/29/24 Date of admission: 09/28/24 14:08 Primary care physician: Erlinda Copeland MD DS: Diagnosis Discharge Diagnosis (1) ELKE (acute kidney injury): Status: Acute (2) Influenza A: Status: Acute (3) Acute asthma exacerbation: Status: Acute DS: Summary Hospital Course Hospital Course: Admission HPI Chief Complaint: elke ,asthma , influenza A 39 y/o M with mild intermittent asthma-patient came to the hospital because of flu-like symptoms, says that feeling sick since (09/25/24) - symptoms started 2-3 days ago with nausea, vomiting, nonbloody watery diarrhea, shortness of breath and wheezing, 2 family members are sick with similar symptoms .he feels very weak ,unable to take much po from 3-4 days. Patient was given nebs, steroids, fluids-patient is short of breath with minimal exertion. patient wbc : 13.5 ,elke -bun/cr : 20/1.6 , cxr -No acute cardiopulmonary findings. Magnesium 1.5. Admission was requested for asthma exacerbation, influenza a, hypomagnesemia, ELKE Hospital course: The patient presented with shortness of breath and wheezing and was found to have influenza and acute kidney injury secondary to dehydration. He was hospitalized and treated with IV fluids to correct the acute kidney injury, with kidney function now returned to normal. For influenza-related asthma exacerbation, he was treated with IV steroids and nebulized bronchodilators. The patient has made a more rapid improvement than expected, is feeling much better, and wishes to go home. He will be discharged with prednisone for 4 more days (total of 5 days of steroids) and will continue using his home inhalers. He has been advised to stop smoking and to stay well-hydrated. Time Attestation Discharge Coordination Time (in mins): 35 Quality: Safe Use of Opioids Does Pt have an Active Cancer Diagnosis on the Problem List?: No Quality: Stroke Does the patient have a stroke diagnosis?: No Physical Exam Vital Signs: Vital Signs: Last Vital Signs Temp 98 F 09/29/24 07:04 Pulse 77 09/29/24 07:53 Resp 14 09/29/24 07:53 BP 114/65 09/29/24 07:04 Pulse Ox 94 09/29/24 07:04 O2 Del Method Room Air 09/29/24 07:04 BMI result Body Mass Index 23.0 General: AO X 3, no acute distress Resp: CTA bilateral CVS: S1,S2,RRR GI: +BS, NT, no distention Skin: No rash Neuro: motor grossly intact Psych: appropriate affect DS: Data Data Completed and Pending Labs on day of discharge: Laboratory Results - last 24 hr 09/28/24 09/29/24 11:39 05:08 WBC 13.5 H 10.4 RBC 5.94 H D 4.83 Hgb 16.7 D 13.7 L Hct 48.6 40.1 L MCV 81.8 83.0 MCH 28.1 28.4 MCHC 34.4 34.2 RDW 12.5 12.7 Plt Count 248 217 MPV 9.4 9.8 Immature Gran % (Auto) 0.4 Neut % (Auto) 73.4 H Lymph % (Auto) 16.7 L [place] % (Auto) 9.0 Eos % (Auto) 0.1 Baso % (Auto) 0.4 Lymph # (Auto) 2.3 [place] # (Auto) 1.2 Eos # (Auto) 0.0 Baso # (Auto) 0.1 Abs Immat Gran (auto) 0.05 H Absolute Neuts (auto) 9.9 H Absolute Nucleated RBC 0.000 0.000 Nucleated RBC % (auto) 0.0 0.0 Sodium 137 138 Potassium 4.4 D 4.1 Chloride 101 106 Carbon Dioxide 25 25 Anion Gap 15 11 L BUN 20 H 18 H Creatinine 1.61 H 1.08 Estim Creat Clear Calc 58.7 87.5 Estimated GFR 49 > 60 Random Glucose 120 H 150 H Estimat Average Glucose 103 Hemoglobin A1c % 5.2 Calcium 9.2 8.2 L D Magnesium 1.5 L 2.0 Total Bilirubin 0.6 AST 40 H ALT 26 Alkaline Phosphatase 82 Total Protein 7.9 Albumin 4.2 Lipase 18 Influenza Type A (PCR) POSITIVE A Influenza Type B (PCR) NEGATIVE RSV RNA Qual (PCR) NEGATIVE SARS-CoV-2 RNA (RT-PCR) NEGATIVE Discharge Plan Discharge Anticipated Discharge Date/Time: 09/29/24 10:26 Patient Disposition: Home, Self-Care Discharge Diagnosis: Influenza, Acute kidney injury Referrals: Erlinda Copeland MD [Primary Care Provider] - 1 Week Discharge Medications: New oseltamivir [Tamiflu] 75 mg Capsule 75 mg PO Q12H Qty: 8 0RF prednisone 20 mg tablet 40 mg PO DAILY Qty: 8 0RF Continued albuterol sulfate 90 mcg/actuation HFA aerosol inhaler 2 puff inhalation QID PRN (Reason: shortness of breath or wheezing) Qty: 6.7 1RF montelukast [Singulair] 10 mg tablet 10 mg PO DAILY Qty: 30 0RF fluticasone propion-salmeterol [Wixela Inhub] 500-50 mcg/dose blister with device 1 ea INHALATION BID Discharge Orders: Discharge Order (Routine); Ordered 09/29/24 Ordered By: Ilia Quezada Diet: Advance to usual diet Activity on Discharge: As tolerated Stand Alone Forms: Patient Portal Discharge page Print Language: Belarusian Care Plan Goals: Recovery from influenza Health Concerns: Influenza Asthma exacerbation Acute kidney injury which is resolved Plan of Treatment: Take prednisone as directed for asthma exacerbation Avoid smoking, drink plenty of fluid. Follow-up with your doctor in a week, call for appointment. Assessment: See above
[2024-09-29] MEDS: Oseltamivir Phosphate 75 MG CAPSULE PO (10:59)
== END 2024-09-29 11:31 | disposition home or self-care (01) | DRG 141 ==
LOC: HO.ED 13:20 → HO.EDOVER 14:19 → HO.S3 14:55
PROVIDERS: Physician Assistant Medical; Admitting Provider Internal Medicine; Emergency Provider Emergency Medicine; PCP Internal Medicine; Visit Provider Internal Medicine
DX: J45.21 Mild intermittent asthma with (acute) exacerbation (principal); N17.9 Acute kidney failure, unspecified; J10.2 Influenza due to other identified influenza virus with gastrointestinal manifestations; E86.0 Dehydration; E83.42 Hypomagnesemia; Z20.822 Contact with and (suspected) exposure to COVID-19; Z79.51 Long term (current) use of inhaled steroids; Z79.899 Other long term (current) drug therapy
CPT/HCPCS: 0241U; 36415; 71046; 80048; 80053; 83036; 83690; 83735; 85025; 85027; 94640; 99285; J2405; J2919; J3475; J7120

== ENCOUNTER → 2024-09-28 11:31 | Outpatient (BNV) | payer BC, SELFPAY | PROVIDERS: PCP Internal Medicine; Visit Provider Radiology Diagnostic Radiology | DX: R06.02 Shortness of breath (principal) | CPT/HCPCS: 71046 ==

== ENCOUNTER → 2024-09-28 14:08 | Outpatient (BNV) | payer BC, SELFPAY | PROVIDERS: Admitting Provider Internal Medicine; Emergency Provider Emergency Medicine; PCP Internal Medicine; Visit Provider Internal Medicine | DX: N17.9 Acute kidney failure, unspecified (principal); J10.1 Influenza due to other identified influenza virus with other respiratory manifestations; J45.21 Mild intermittent asthma with (acute) exacerbation | CPT/HCPCS: 99222 ==

== ENCOUNTER 2025-08-29 11:09 | Emergency (ER) | payer OTHER, SELFPAY ==
--- NOTE | 2025-08-29 11:13 | ED.GENADULT ---
HPI - General Adult General Chief complaint: Abdominal Pain Stated complaint: Nausea Vomiting Diarrhea Time Seen by Provider: 08/29/25 13:14 Source: patient Mode of arrival: ambulatory Limitations: no limitations History of Present Illness ED Provider: Edie Barrientos PA-C HPI narrative: Patient is a 39 year old assigned male at with a history of asthma presenting to the emergency department today with headache and diarrhea. Patient states that over the last few days he has felt generally unwell with a headache and diarrhea. Patient denies any other complaints at this time. Relieving factors: none Exacerbating factors: none Related Data Home Medications ?Medication ?Instructions ?Recorded ?Confirmed fluticasone 500 mcg-salmeterol 50 1 ea inhalation BID 09/28/24 09/28/24 mcg/dose blistr powdr for inhalation (Jenxvicki White) Previous Rx's ?Medication ?Instructions ?Recorded albuterol sulfate 90 mcg/actuation 2 puff inhalation QID PRN 07/22/22 aerosol inhaler shortness of breath or wheezing #6.7 grams montelukast 10 mg tablet 10 mg PO DAILY #30 tabs 07/22/22 (Singulair) oseltamivir 75 mg capsule (Tamiflu) 75 mg PO Q12H #8 caps 09/29/24 prednisone 20 mg tablet 40 mg (2 x 20 mg) PO DAILY #8 tabs 09/29/24 ondansetron 4 mg disintegrating 4 mg PO Q8H 3 days #9 tabs 08/29/25 tablet Allergies Allergy/AdvReac Type Severity Reaction Status Date / Time cat dander (cats) Allergy Unknown Verified 08/29/25 11:16 Seasonal Allergies Allergy Itchy Eyes Verified 08/29/25 11:16 Review of Systems Constitutional: Constitutional: Reports as per HPI Eyes: Eyes: Reports as per HPI ENT: Reports as per HPI Cardiovascular: Cardiovascular: Reports as per HPI Respiratory: Respiratory: Reports as per HPI Gastrointestinal: Gastrointestinal: Reports as per HPI Genitourinary: Genitourinary: Reports as per HPI Musculoskeletal: Musculoskeletal: Reports as per HPI Integumentary/Breasts: Skin/Breast: Reports as per HPI Neurologic: Reports as per HPI Psychiatric: Psychiatric: Reports as per HPI Endocrine: Endocrine: Reports as per HPI Hematologic/Lymphatic: Hematologic/Lymphatic: Reports as per HPI Allergic/Immunologic: Allergic/Immunologic: Reports as per HPI [facility] Past Medical History Attestation statement: The following information was validated with the patient. Source: old records reviewed and nursing notes reviewed Medical History Asthma Social History Social History Household Members: Significant Other and Family Housing: Apartment Do you presently have visiting nurse or other home services: No Patient Tobacco Use Status: Never used Tobacco Substance Use Type: Marijuana Advance Directives: No Advance Directives Information Provided: Yes Do you have a plan to hurt others: No Plan Physical Exam ED Vital Signs: Vital Signs - 24 hr 08/29/25 11:14 Temperature 98.6 F Pulse Rate 90 Respiratory Rate 20 Blood Pressure 116/89 Pulse Oximetry 99 Oxygen Delivery Method Room Air BMI result Body Mass Index 21.1 Const General: cooperative, no acute distress, alert and awake Nutritional Appearance: well nourished Orientation/consciousness: patient oriented x3 HENMT Head: Yes normal to inspection and Yes atraumatic Ears: hearing grossly normal bilaterally and external ears normal General nose exam: Normal external nose present, no nasal discharge noted and no epistaxis Face and sinus: Yes normal facial exam, No abrasion and No laceration Mouth: Normal oral and palatal mucosa present, no drooling and no muffled voice Eyes General: appearance normal, both eyes and all related structures Periorbital: periorbital findings normal Eyelids: Yes eyelids normal Conjunctivae: conjunctivae normal Pupils: Equal, round and reactive pupils present EOM: EOMs intact bilaterally Neck Neck: Yes normal visual inspection and Yes full ROM Resp Effort & Inspection: normal respiratory effort and able to speak in complete sentences Neuro General: patient oriented x3, moves all extremities and CN's II-XI intact bilaterally Cranial nerves: Yes Equal, round and reactive pupils present Cognition (Neuro): normal cognition Extrem General: Yes normal to inspection, Yes full ROM and Yes capillary refill normal Psych Appearance: grossly normal Mental Status: mental status grossly normal Affect: normal affect Attitude: cooperative Thought process: Normal thought process present Thought content: Normal thought content present Insight: Good insight present (Psych) Course Course Course Narrative: This is a Rapid Medical Examination (RME) performed by Lubna Brooks PA-C in triage. Full HPI, ROS, assessment and treatment plan per primary provider in the Main ED. Hx: 39 yo M here w/ GEE, dizziness, nausea, vomiting, diarrhea x5 days. reports near syncopal episode this morning s/p hyperventilating. he is unsure why he was hyperventilating. he is unable to tolerate PO. fiance ill w/ similar symptoms. Plan: labs, viral swabs Medications Administered Generic Name Dose Route Start Last Admin Trade Name Freq PRN Reason Stop Dose Admin Sodium Chloride 1,000 mls @ 999 mls/hr 08/29/25 13:30 08/29/25 13:47 Ns IV 08/29/25 14:30 999 mls/hr .Q1H1M ANA Administration Discontinued Medications Generic Name Dose Route Start Last Admin Trade Name Freq PRN Reason Stop Dose Admin Ondansetron HCl 4 mg 08/29/25 13:21 08/29/25 13:48 Ondansetron Hcl 4 Mg/2 Ml Vial IVPUSH 08/29/25 13:22 4 mg ONCE ONE Administration Medical Decision Making Medical Decision Making [facility] Narrative: Patient is a 39 year old assigned male at with a history of asthma presenting to the emergency department today with headache and diarrhea. Patient's physical exam was as noted in the physical exam portion of this note. Patient's blood work, ordered by the provider in triage, was unremarkable. Patient's COVID-19 testing was positive. Patient received IV fluids and Zofran while in the department. I explained my physical exam findings as well as all test results to the patient. I answered all questions asked by the patient. I stressed the importance of the patient taking his medication as directed (either prescribed or as the over the counter packaging recommends). I stressed the importance of the patient following up with his primary care provider. I stressed the importance of the patient returning to the emergency department immediately if his symptoms were to worsen or if he were to develop any dizziness, shortness of breath, difficulty breathing, chest pain, blurry vision, loss of vision, nausea, vomiting, abdominal pain, fever, chills, back pain, or any other complaints. Patient verbalized agreement and understanding with this treatment plan and discharge. Differential Diagnosis Differential Diagnoses: The differential diagnosis associated with the presentation includes Headache Nausea Diarrhea COVID-19 Influenza RSV Admission/Observation Consideration of admission/observation: Escalation of care including admission/observation considered Patient would have been admitted to the hospital had his work up had any findings where hospital admission was appropriate and his clinical presentation warranted hospital admission. Lab Data [facility] Lab Attestation statement: I reviewed the patient's lab results. My interpretation of these results are in the [facility] Rationale portion of this note. 08/29/25 11:08/29/25 11:29 Labs: Lab Results 08/29/25 08/29/25 Range/Units 11:20 11:29 WBC 10.0 (4.8-10.8) X10*3/uL RBC 5.73 (4.60-5.80) X10*6/uL Hgb 16.0 (14.0-18.0) g/dl Hct 46.1 (42.0-52.0) % MCV 80.5 (80.0-98.0) fL MCH 27.9 (27.0-33.0) pg MCHC 34.7 (31.0-36.0) g/dl RDW 12.8 (11.0-16.0) % Plt Count 389 D (160-400) X10*3/uL MPV 9.3 L (9.4-12.4) fL Immature Gran % (Auto) 0.3 (0.0-0.4) % Neut % (Auto) 55.9 (45-73) % Lymph % (Auto) 34.3 (20-40) % Wilson % (Auto) 7.7 (2-11) % Eos % (Auto) 1.4 (0-4) % Baso % (Auto) 0.4 (0-2) % Lymph # (Auto) 3.4 (1.2-4.9) X10*3/uL Wilson # (Auto) 0.8 (0.1-1.2) X10*3/uL Eos # (Auto) 0.1 (0.0-0.4) X10*3/uL Baso # (Auto) 0.0 (0.0-0.2) X10*3/uL Abs Immat Gran (auto) 0.03 (0.00-0.03) X10*3/uL Absolute Neuts (auto) 5.6 (2.0-8.3) x10*3/uL Absolute Nucleated RBC 0.000 (0.0-0.012) X10*3/uL Nucleated RBC % (auto) 0.0 (0.0-0.2) /100WBC Sodium 138 (135-145) mmol/L Potassium 3.8 (3.3-5.1) mmol/L Chloride 101 (96-108) mmol/L Carbon Dioxide 20 L (22-29) mmol/L Anion Gap 21 H (12-20) BUN 23 H (9-16) mg/dL Creatinine 1.23 (0.5-1.4) mg/dL Estim Creat Clear Calc 71.0 Estimated GFR > 60 Random Glucose 93 (60-115) mg/dL Calcium 9.7 D (8.4-10.2) mg/dL Magnesium 1.7 (1.6-2.6) mg/dL Total Bilirubin 0.8 (0.0-1.0) mg/dL AST 28 (5-37) U/L ALT 7 (0-40) U/L Alkaline Phosphatase 95 (39-117) U/L Total Protein 8.2 H (6.5-8.0) g/dL Albumin 4.6 (3.5-5.0) g/dL Lipase 57 (8-78) U/L Influenza Type A (PCR) NEGATIVE (Negative) Influenza Type B (PCR) NEGATIVE (Negative) RSV RNA Qual (PCR) NEGATIVE (Negative) SARS-CoV-2 RNA (RT-PCR) POSITIVE A (Negative) Tests considered The following testing was considered but not selected: I considered obtainining a CT scan of the abdomen/pelvis however, the patient's current clinical presentation and work up did not warrant this. Discharge Plan Discharge Clinical Impression: COVID-19, Nausea Patient Disposition: Home, Self-Care Instructions: Acute Nausea and Vomiting (DC), COVID-19 (Coronavirus Disease 2019) (ED) Additional Instructions: Your work up today was positive for COVID-19 but otherwise unremarkable. You were given a liter of IV fluids while in the department as well as your first dose of anti-nausea medication. IF you are prescribed home medications and/or you are taking over the counter medications at home - it is very important you continue to do so as prescribed / directed unless told otherwise by a healthcare provider. Follow up with your primary care provider. Do your best to stay well hydrated and rest. Return to the emergency department immediately if your symptoms worsen or if you develop any numbness, tingling, dizziness, shortness of breath, difficulty breathing, chest pain, blurry vision, loss of vision, nausea, vomiting, abdominal pain, fever, chills, back pain, or any other complaints. Please see the information below about our Patient Portal. If you are not yet enrolled in the [facility] Patient Portal, you will receive an enrollment email invitation following your visit to any [facility] [place] [place]/[facility] setting. You may also self-enroll in the Patient Portal by visiting our website: [email or web address] The following information is required to access the Patient Portal: - Your [facility] [place] [place] Medical Record Number - Your personal home email address (must match what is in your electronic medical record, Registration staff can assist with this) - Name - Date of Capabilities of the Patient Portal: - Message some providers - View upcoming appointments - Access your health summary, medical history, and visit history - View current conditions and allergies - View procedure and lab results - View your medications, including guidelines, side effects, and precautions - Complete pre-appointment questionnaires requested by your provider - Ready summary reports of your office visits and procedures To access the Patient Portal Mobile Anjelica, follow these directions: - Search Zinc software in the Anjelica Store or Google Play Store - Download the Anjelica - Search for [facility] - Enter your login/password Prescriptions: New ondansetron 4 mg tablet,disintegrating 4 mg PO Q8H 3 Days Qty: 9 0RF No Action albuterol sulfate 90 mcg/actuation HFA aerosol inhaler 2 puff inhalation QID PRN (Reason: shortness of breath or wheezing) Qty: 6.7 1RF montelukast [Singulair] 10 mg tablet 10 mg PO DAILY Qty: 30 0RF fluticasone propion-salmeterol [Wixela Inhub] 500-50 mcg/dose blister with device 1 ea INHALATION BID oseltamivir [Tamiflu] 75 mg Capsule 75 mg PO Q12H Qty: 8 0RF prednisone 20 mg tablet 40 mg PO DAILY Qty: 8 0RF Referrals: Erlinda Copeland MD [Primary Care Provider, Internal Medicine] Print Language: Icelandic
[2025-08-29 11:14] VITALS: BP 116/89; PULSE 90; RESP 20; TEMP 37; O2SAT 99; BMI 21.1
[2025-08-29 11:33] LABS: MANUAL DIFF FLAG NO
--- OUTSIDE RECORDS SUMMARY | 2025-08-29 11:35 | XMS_ITS ---
Author Name [facility] Organization Unknown Care Team Organization Name Specialty Phone Email Start Date End Da te [facility] Primary Care 07/04/2023 05/19/20 24
[2025-08-29 11:36] LABS: Hematocrit 46.1 % (42.0-52.0); Hemoglobin 16.0 g/dl (14.0-18.0); Mean Corpuscular HGB Conc 34.7 g/dl (31.0-36.0); Mean Corpuscular Hemoglobin 27.9 pg (27.0-33.0); Mean Corpuscular Volume 80.5 fL (80.0-98.0); Platelet Count 389 X10*3/uL (160-400); Red Blood Count 5.73 X10*6/uL (4.60-5.80); White Blood Count 10.0 X10*3/uL (4.8-10.8)
--- OUTSIDE RECORDS SUMMARY | 2025-08-29 11:36 | XMS_ITS | Clinical Summary ---
Author Organization [facility] Address [address] [place] [id number] Phone Care Team Providers Care Application Technical Designer Name Role Phone Erlinda Copeland MD Primary Care Provider [phone] Allergies Active Allergy Reactions Criticality Noted Date Comments Cat Hair Standardized Allergenic Extract 11/28/2021 Dog Dander 11/28/2021 Medications albuterol 2.5 mg /3 mL (0.083 %) nebulizer solution Inhale 2.5 mg into the lungs. 2 Active albuterol 2.5 mg /3 mL (0.083 %) nebulizer solution USE 1 VIAL VIA NEBULIZER EVERY 4 HOURS NEEDED FOR WHEEZING 2 Active ADVAIR HFA 115-21 mcg/actuation inhaler Inhale 2 puffs into the lungs 2 (two) times a day. 2 Active fluticasone propionate (FLOVENT DISKUS) 100 mcg/actuation DsDv INHALE 1 PUFF BY MOUTH DAILY. RINSE MOUTH WITH WATER AND EXPECTORATE AFTER EACH DOSE TO PREVENT THRUSH OR FUNGAL INFECTION 1 Active ipratropium-alb uteroL (COMBIVENT RESPIMAT) 20-100 mcg/actuation Mist Inhale 20 mcg into the lungs. 2 Active ibuprofen (ADVIL,MOTRIN) 600 MG tablet Take 1 tablet (600 mg total) by mouth 3 (three) times a day for 3 days. Then tid prn pain/inflammatio n 30 tablet 2 Active montelukast (SINGULAIR) 10 mg tablet Take 1 tablet by mouth nightly at bedtime. 2 Active naproxen (NAPROSYN) 250 MG tablet Take 250 mg by mouth. 3 Active albuterol 90 mcg/actuation inhaler Inhale 1-2 puffs into the lungs every 4 (four) hours as needed for wheezing or shortness of breath/dyspnea. 8 g 5 Active inhaler spacing device (AEROCHAMBER,BR EATHERITE) Spcr Inhale 1 each into the lungs every 4 (four) hours as needed. 1 each 5 Active Active Problems Problem Noted Date Diagnosed Date DDD (degenerative disc disease), lumbar 09/18/20 18 Asthma in adult without complication 11/27/2016 Immunizations Immunization Administration Dates Next Due Tdap 01/05/2022,11/27/2016 Social History Tobacco Use Types Packs/Day Years Used Date Smoking Tobacco: Never Smokeless Tobacco: Never Education Answer Date Recorded Are you interested in more education? Not on natanael e 01/26/2023 Are you concerned about learning? Not on file 01/26/2023 No 01/26/2023 No 01/26/2023 Digital Access Answer Date Recorded No 02/26/2023 No 02/26/2023 Reliable internet access at home? Not on file 02/26/2023 Device with a working camera? Not on file Sex and Gender Information Value Date Recorded Sex Assigned at Not on file Legal Sex Male 9:10 PM EDT Gender Identity Not on file Sexual Orientation Not on file Last Filed Vital Signs Vital Sign Reading Time Taken Comments Blood Pressure 126/86 10/23/2024 11:57 AM EST Pulse 99 10/23/2024 11:57 AM EST Temperature 36.7 C (98.1 F) 10/23/2024 11:57 AM EST Respiratory Rate 18 10/23/2024 11:57 AM EST Oxygen Saturation 98% 10/23/2024 11:57 AM EST Inhaled Oxygen Concentration - - Weight 70.3 kg (155 lb) 10/23/2024 11:57 AM EST Height 172.7 cm (5' 8 ) 10/23/2024 11:57 AM EST Body Mass Index 23.57 10/23/2024 11:57 AM EST Plan of Treatment Health Maintenance Due Date Last Done Comments DEPRESSION SCREENING 1999 HEPATITIS C SCREENING 2005 HIV ONE-TIME SCREENING (18-6 5 YEARS) 2005 PNEUMOCOCCAL VACCINES (0-49 years) (1 of 2 - PCV) 2006 LIPID PANEL 12/07/2021 12/07/2016 INFLUENZA VACCINE (#1) 2025 COVID-19 VACCINE (1 - 2024-2 6 season) 2025 Adult Td,Tdap Booster 01/06/2032 01/05/2022 , 11/27/2016 SMOKING STATUS SCREENING (On ce After 26 Yrs) Completed 07/26/2023 HEPATITIS A VACCINES Aged Out No long er eligible based on patient's age to complete this topic HIB VACCINES Aged Out No longer eligi ble based on patient's age to complete this topic MENINGOCOCCAL VACCINES (ACWY) Aged Out No longer eligible based on patient's age to complete this topic MENINGOCOCCAL VACCINES (B) Aged Out N o longer eligible based on patient's age to complete this topic Medical Devices Not on file Insurance PPO EPO [facility]PO EPO [facility] P[facility] E[facility] PPO EPO Care Teams Application Technical Designer Relationship Specialty Start Date End Date Erlinda Copeland MD [address] [place] [phone] PCP - General Internal Medicine 07/26/23 Additional Source Comments The information contained in this document represents components of the legal health record. It is not the complete legal health record.[facility]
--- OUTSIDE RECORDS SUMMARY | 2025-08-29 11:36 | XMS_ITS | Clinical Summary ---
Author Organization Patient Business Ser [facility] Address [address] [place] [address] Care Team Providers Care Ordnance Technician Name Role Phone Erlinda Copeland MD Primary Care Provider [phone] Allergies Active Allergy Reactions Criticality Noted Date Comments Cat Hair Standardized Allergenic Extract 11/28/2021 Dog Dander 11/28/2021 Medications montelukast (SINGULAIR) 10 mg tablet Take 1 tablet (10 mg total) by mouth at bedtime. 90 each 3 5 11/20/19 26 Active albuterol HFA (PROAIR HFA ; PROVENTIL HFA ; VENTOLIN HFA) 90 mcg/actuation inhaler Inhale 2 puffs by mouth every 6 (six) hours if needed for wheezing. 6.7 g 11 5 02/03/20 26 Active umeclidinium (Incruse Ellipta) 62.5 mcg/actuation inhalationIndica tions:Severe persistent asthma with status asthmaticus (CMS/[facility] V28),Chronic obstructive pulmonary disease, unspecified COPD type (CMS/[facility] V24, CMS/[facility] V28) Inhale 1 puff by mouth 1 (one) time each day. 1 each 5 02/03/20 26 Active Additional Information Patient not taking.Reported on 06/19/2025 fluticasone propion-salmeter oL (ADVAIR HFA) 230-21 mcg/actuation inhaler Inhale 2 puffs by mouth 2 (two) times a day. Rinse mouth with water after use to reduce aftertaste and incidence of candidiasis. Do not swallow. 1 each 5 02/05/20 26 Active Additional Information Patient not taking.Reported on 06/19/2025 tiotropium (Spiriva Respimat) 2.5 mcg/actuation inhalation spray Inhale 2 puffs by mouth 1 (one) time each day. 1 each 5 02/10/20 26 Active fluticasone propion-salmeter oL (Wixela Inhub) 500-50 mcg/dose diskus inhalerIndicatio ns:Severe persistent asthma with status asthmaticus ([facility] V28) Inhale 1 puff by mouth 2 (two) times a day. Rinse mouth with water after use to reduce aftertaste and incidence of candidiasis. Do not swallow. 1 each 5 03/18/20 Active Active Problems Problem Noted Date Diagnosed Date Lab test negative for COVID-19 virus 10/03/2020 DDD (degenerative disc disease), lumbar 09/18/20 18 Hyperinflation of lungs 07/24/2017 Asthma in adult without complication 11/27/2016 Chronic bilateral low back pain without sciatica 11/27/2016 Encounters Date Type Department Care Team Description 06/19/2025 3:45 PM EDT Office Visit Pulmonology - [address] [phone] Javid Flores MD Chronic obstructive pulmonary disease, unspecified COPD type ([facility] V24, [facility] V28) (Primary Dx); Moderate persistent asthma, unspecified whether complicated; Nodule of esophagus from Last 3 Months Immunizations Immunization Administration Dates Next Due Tdap Tetanus diptheria acell ular pertussis (Boostrix; Adacel) 7yo and older 11/27/2016 Medical History Medical History Date Comments Other unspecified back disorder DX:Other unspecified back disorder Social History Tobacco Use Types Packs/Day Years Used Date Smoking Tobacco: Former Smokeless Tobacco: Never Alcohol Use Standard Drinks/Week Comments No 0 (1 standard drink = 0.6 oz pur e alcohol) Sex and Gender Information Value Date Recorded Sex Assigned at Male 02/04/2025 11:33 AM EDT Legal Sex Male 5:31 PM EST Gender Identity Male 02/04/2025 11:33 AM EDT Sexual Orientation Straight 02/04/2025 11 :33 AM EDT Obstetrics History Last Filed Vital Signs Vital Sign Reading Time Taken Comments Blood Pressure 110/62 06/19/2025 3:47 PM EDT Pulse 76 06/19/2025 3:47 PM EDT Temperature 36.3 C (97.3 F) 06/19/2025 3:47 PM EDT Respiratory Rate 20 06/19/2025 3:47 PM EDT Oxygen Saturation 94% 06/19/2025 3:47 PM EDT Inhaled Oxygen Concentration - - Weight 65.7 kg (144 lb 12.8 oz) 06/19/2025 3:47 PM EDT Height 170.2 cm (5' 7 ) 06/19/2025 3:47 PM EDT Body Mass Index 22.68 06/19/2025 3:47 PM EDT Plan of Treatment Upcoming Encounters Date Type Department Care Team ([facility] st Contact Info) Description 10/19/2025 3:45 PM EST Office Visit Pulmonology - [place] [address] [facility] [address] [place] [phone] Javid Flores MD [address] [place] [phone] 12/16/2025 11:30 AM EDT Consult Gastroenterology - [address] [facility] [address] [facility] [address] [place] [phone] Natalie Boykin PA [address] [facility] [address] [place] [address] Health Maintenance Due Date Last Done Comments Hepatitis B Vaccines (1 of 3 - 19+ 3-dose series) 2006 Pneumococcal Vaccine: Pediatrics (0 to 5 Years) and At-Risk Patients (6 to 49 Years) (1 of 2 - PCV) 2006 HPV Vaccines (1 - 3-dose SCD M series) 2014 Social Influencers of Health Screening 11/02/2021 Cholesterol Screening (Lipid Panel) 12/07/2021 12/07/2016 Depression Screening 10/01/2024 COVID-19 Vaccine ( - 2024-2 6 season) 2025 Influenza Vaccine (#1) 2025 DTaP,Tdap,and Td Vaccines (3 - Td or Tdap) 01/06/2032 01/05/2022, 11/27/2016 RSV Immunization Adult Patients (1 - 1-dose 75+ series) 2062 HIV Screening Completed 09/18/2018 Hepatitis C Screening Completed 09/18/2018 HIB Vaccines Aged Out No longer eligi ble based on patient's age to complete this topic Hepatitis A Vaccines Aged Out No long er eligible based on patient's age to complete this topic IPV Vaccines Aged Out No longer eligi ble based on patient's age to complete this topic MMR Vaccines Aged Out No longer eligi ble based on patient's age to complete this topic Meningococcal ACWY Vaccine Aged Out N o longer eligible based on patient's age to complete this topic Meningococcal B Vaccine Aged Out No l onger eligible based on patient's age to complete this topic RSV Immunization Patients Under 20 months Aged Out No longer eligible b ased on patient's age to complete this topic Varicella Vaccines Aged Out No longer eligible based on patient's age to complete this topic Procedures Procedure Name Priority Date/Time Associated Diagnosis Comments HEPATITIS C SCREENING Routine 09/18/2018 HIV SCREENING Routine 09/18/2018 LIPID PANEL Routine 12/07/2016 from Last 3 Months or Most Recently Relevant to Health Maintenance Results * HIV Screening (09/18/2018) [facility] HIV Screening abstracted [facility] Provider HEALTH MAINTENANCE Final Result * Hepatitis C Screening (09/18/2018) [facility] Hepatitis C Screening abstracted [facility] Provider HEALTH MAINTENANCE Final Result * Lipid panel (12/07/2016) [facility] LDL/HDL Ratio 2 0 - 4 Triglycerides 82 0 - 150 mg/dL Cholesterol 109 0 - 200 mg/dL HDL 44 >=40 mg/dL LDL Cholesterol 49 0 - 100 mg/dL Blood Venous blood specimen / Unknown [facility] Provider LAB BLOOD ORDERABLES Alma l Result from Last 3 Months or Most Recently Relevant to Health Maintenance Insurance [facility] [employer] Care Teams Ordnance Technician Relationship Specialty Start Date End Date Erlinda Copeland MD [address] [place] [address] [address] [place] [phone] PCP - General Internal Medicine 10/05/20
[2025-08-29 11:37] LABS: Imm Gran Abs Auto 0.03 X10*3/uL (0.00-0.03); Imm Gran Pct Auto 0.3 % (0.0-0.4); Lymphocytes Absolute Auto 3.4 X10*3/uL (1.2-4.9); NRBC Abs Auto 0.000 X10*3/uL (0.0-0.012); NRBC Pct Auto 0.0 /100WBC (0.0-0.2)
[2025-08-29 11:53] LABS: Alanine Aminotransferase 7 U/L (0-40); Albumin Level 4.6 g/dL (3.5-5.0); Alkaline Phosphatase 95 U/L (39-117); Anion Gap 21 (12-20); Aspartate Amino Transferase 28 U/L (5-37); Blood Urea Nitrogen 23 mg/dL (9-16); Calcium 9.7 mg/dL (8.4-10.2); Carbon Dioxide 20 mmol/L (22-29); Chloride 101 mmol/L (96-108); Creatinine Clr Calc Pharmacy 71.0; Estimated Glomerular Filt Rate > 60; Lipase 57 U/L (8-78); Magnesium 1.7 mg/dL (1.6-2.6); Potassium 3.8 mmol/L (3.3-5.1); Sodium 138 mmol/L (135-145); Total Protein 8.2 g/dL (6.5-8.0)
[2025-08-29 12:22] LABS: Resp Syncy Virus RNA Qual PCR NEGATIVE (Negative); SARS COV2 PCR INHOUSE POSITIVE (Negative)
[2025-08-29 15:19] VITALS: BP 116/89; PULSE 90; RESP 20; TEMP 37; O2SAT 99
== END 2025-08-29 15:19 | disposition home or self-care (01) ==
PROVIDERS: Physician Assistant Medical; Emergency Provider Emergency Medicine; PCP Internal Medicine
DX: U07.1 COVID-19 (principal); R11.2 Nausea with vomiting, unspecified; R51.9 Headache, unspecified; R19.7 Diarrhea, unspecified; Z79.899 Other long term (current) drug therapy
CPT/HCPCS: 36415; 80053; 83690; 83735; 85025; 87637; 96361; 96374; 99283; 99284; J2405